=== PATIENT | male | born 1985 | race Two or more races ===

== ENCOUNTER 2024-11-06 14:58 | Emergency (ER) | payer SELFPAY ==
[2024-11-06 15:04] VITALS: BP 131/87; PULSE 140; RESP 18; TEMP 36.6; O2SAT 97
--- NOTE | 2024-11-06 15:07 | EDNOTE_ITS ---
ED Medical Clearance RME/HPI General Chief complaint: Medical Clearance Stated complaint: PENITENTIARY CHECK Time Seen by Provider: 11/06/24 15:04 Arrival date/time: 11/06/24 14:58 RME / HPI RME / HPI Narrative: 39-year-old male patient homeless, admits of using meth, uses today prior to being incarcerated, was brought in by law enforcement for tachycardia. Apparently [facility] and prior to booking was noted with heart rate above 140, patient was sent her for a heart rate above 140, the cutoff is only 130 and below. Currently patient is denying any chest pain denies any complaints no fever no vomiting no diarrhea Related Information Allergies Allergy/AdvReac Type Severity Reaction Status Date / Time No Known Allergies Allergy Verified 11/06/24 15:18 Review of Systems Review of Systems Narrative Review of Systems: Review of system reviewed and within normal limits except mentioned in HPI ED Exam Narrative Physical exam: VITAL SIGNS: Reviewed. GENERAL APPEARANCE: Alert and interactive, follows commands, no acute distress, unkept HEAD AND FACE: Non-traumatic. ENT: PERRL, pink conjunctivitis, eyelid no trauma, Mucous membrane moist. NECK: Supple, nontender, no nuchal rigidity. CHEST: No tenderness, no crepitus, no paradoxical movement, no retractions. LUNGS: Clear, well ventilated, symmetric, no rales, no wheezing, no ronchi, no stridor, good breath sounds bilaterally. HEART: Sinus tachycardia, no murmur, no gallops. ABDOMEN: Soft, positive bowel sounds, nondistended, no guarding, nontender, no rebound, no masses, RECTAL: Deferred. GENITAL: Deferred. NEUROLOGICAL: Gross motor function intact sensory function intact, Appropriate for age. MUSCULOSKELETAL: low back nontender, full range of motion. EXTREMITIES: Nontender, full range of motion. SKIN: Color pink, dry, no rash, no lacerations, no abrasions, no contusions. LYMPHATICS: Deferred. Course Quality Measures none Orders Category Date Time Status EKG (ED ONLY) *Do not use* NOW Care 11/06/24 16:18 Completed Insert IV NOW Care 11/06/24 15:07 Active EKG (ED Only) Stat Exams 11/06/24 16:18 Draft CBC [CBC] Stat Lab 11/06/24 15:25 Completed CMP [Comprehensive Metabolic Panel] Stat Lab 11/06/24 15:25 Completed Ringers Lactated 1000 ml [Lactated Ringers] 1,000 ml Med 11/06/24 15:06 Discontinued IV 999 mls/hr Sod Polystyrene Sulfon Susp [Kayexalate Susp] Med 11/06/24 16:17 Discontinued 30 gm PO X1 ONE Sodium Chloride 0.9% 1000 ml [Ns] 1,000 ml Med 11/06/24 15:33 Active IV 999 mls/hr Vital Signs Vital signs: Vital Signs Temperature 97.8 F 11/06/24 15:04 Pulse Rate 140 H 11/06/24 15:04 Respiratory Rate 18 11/06/24 15:04 Blood Pressure 131/87 H 11/06/24 15:04 Pulse Oximetry (%) 97 11/06/24 15:04 Oxygen Delivery Method Room Air 11/06/24 15:04 Medical Clearance MDM Narrative MDM Narrative:: 39-year-old male patient homeless, admits of using meth, uses today prior to being incarcerated, was brought in by law enforcement for tachycardia. Apparently [facility] and prior to booking was noted with heart rate above 140, patient was sent her for a heart rate above 140, the cutoff is only 130 and below. Currently patient is denying any chest pain denies any complaints no fever no vomiting no diarrhea Patient's heart rate was noted to be 101 prior to discharge. However patient had a leukocytosis of 16,000 which could be reactive in nature, potassium 5.7. Creatinine 1.4. Patient received Kayexalate in the emergency room. EKG showed sinus tachycardia, ventricular rate 110 bpm, no ST segment elevation depression noted. Patient is medically cleared for incarceration. Patient data External records reviewed:: None Clinical information provided by:: patient Social determinants that could affect healthcare access:: substance use Patient has the following chronic illnesses:: MetH abuse How is presenting disease/condition affected by chronic disease/condition?: exacerbated by Evaluation data The following diagnostics were reviewed and interpreted by me:: lab results and EKG tracing(s) Lab and/or radiology exams considered but not ordered:: None Interpretation Summary: EKG showed normal sinus rhythm, ventricular rate of no ST segment elevation depression noted. Medications / Prescriptions Medications or Prescriptions considered but not ordered:: None Medication administrations:: Medication Administration History Sodium Chloride (Ns) 1,000 mls @ 999 mls/hr IV .Q1H1M ONE Stop: 11/06/24 16:33 Last Infusion: 11/06/24 16:05 Dose: Infused Documented By: Admin: 11/06/24 15:34 Dose: 999 mls/hr Documented By: MARY Discontinued Medications Lactated Ringer's (Lactated Ringers) 1,000 mls @ 999 mls/hr IV .Q1H1M ONE Stop: 11/06/24 16:06 Last Admin: 11/06/24 15:34 Dose: Not Given Documented By: MARY Non-Admin Reason: Cancelled by Provider Sodium Polystyrene Sulfonate (Sod Polystyrene Sulfon Susp 15 Gm/60 Ml Btl) 30 gm PO X1 ONE Stop: 11/06/24 16:18 Last Admin: 11/06/24 16:24 Dose: 30 gm Documented By: MACKENZIE IV NS, and Kayexalate p.o. Consultations Consultation(s) initiated? (list below): No Diagnosis Medical Clearance Differential Diagnosis: other (Dehydration, methamphetamine abuse, hyperkalemia 5.7, medical clearance for incarceration) Most likely diagnosis given after review of the tests above:: Medical clearance for incarceration Admission Indicated Admission indicated?: not indicated Explain why admission is indicated or not indicated:: Stable patient is medically cleared for incarceration latest heart rate 101 prior to discharge. Admission Request Was there a request for admission?: No Disposition Plan Disposition Plan: Discharge Discharge Attestation Discharge Attestation: Patient condition: Stable Discharge Plan Plan Patient Disposition: Snf/Court/Law Discharge Disposition comment: Stable Prescriptions/Referrals Referrals: No Primary/Family,Physician [Primary Care Provider] - In 1 week Problem List Clinical Impression: Medical clearance for incarceration Patient/Caregiver Discharge Instructions Discharge Activity: activity as tolerated Education Materials: Reducing Your Health Risks ... Additional Instructions: Thank you for the opportunity for serving you today. You are stable for discharged . You are advised to: Follow-up with your PCP in 1 to 2 days once you get out of [facility] Return to ED for worsening of symptoms Increase oral fluids Print Language: Scottish EBONIE/MARYJANE Supervising Physician EBONIE/MARYJANE Supervising Physician: MD Star
[2024-11-06 15:15] VITALS: BMI 22.5
[2024-11-06] MEDS: SODIUM CHLORIDE 0.9% 1000 ML 1,000 ML 999 ML IV (15:34)
[2024-11-06 15:53] LABS: Basophils # (Auto) 0.1 Thou/mm3 (0.0-0.2); Basophils % (Auto) 1 % (0-2.5); Eosinophils # (Auto) 0.1 Thou/mm3 (0.0-0.5); Eosinophils % (Auto) 1 % (0-10); Hematocrit 42.7 % (41.0-53.0); Hemoglobin 14.0 g/dL (13.5-16.0); Immature Granulocytes Auto 0.07 Thou/mm3 (0.00-0.00); Lymphocytes # (Auto) 2.1 Thou/mm3 (1.0-4.8); Lymphocytes % (Auto) 13 % (10-50); Mean Corpuscular HGB Conc 32.8 g/dl (31.0-37.0); Mean Corpuscular Hemoglobin 29.0 pg (25.0-35.0); Mean Corpuscular Volume 88 fL (80-100); Monocytes # (Auto) 0.9 Thou/mm3 (0.0-0.8); Monocytes % (Auto) 6 % (0-12); Neutrophils # (Auto) 12.7 Thou/mm3 (1.8-7.7); Neutrophils % (Auto) 79 % (37-80); Nucleated Red Blood Cell # 0.00 Thou/mm3 (0.00-0.00); Nucleated Red Blood Cell % 0 /100 WBC (0); Platelet Count 311 Thou/mm3 (140-440); RDW Standard Deviation 43.6 fL (35.1-43.9); Red Blood Count 4.83 Miln/mm3 (4.50-5.90); White Blood Count 16.0 Thou/mm3 (3.8-10.6)
[2024-11-06 16:03] VITALS: PULSE 101; RESP 16; O2SAT 95
[2024-11-06 16:16] LABS: Alanine Aminotransferase 33 U/L (10-49); Albumin, Serum 5.0 gm/dL (3.5-5.0); Albumin/Globulin Ratio 1.8 (1.2-2.2); Alkaline Phosphatase 81 U/L (46-116); Anion Gap 15 (7-16); Aspartate Amino Transferase 67 U/L (0-34); BUN/Creatinine Ratio 11 Ratio (12-20); Bilirubin,Total 0.9 mg/dL (0.3-1.2); Blood Urea Nitrogen 15 mg/dL (9-23); Calcium 10.0 mg/dL (8.3-10.6); Calcium (Corrected) 10.0 mg/dL (8.5-10.1); Carbon Dioxide 18.9 mMol/L (20.0-31.0); Chloride 106 mMol/L (98-107); Creatinine (Component) 1.4 mg/dL (0.6-1.3); Estimated Creatinine Clearance 82.6 mL/min (>60); Globulin 2.8 gm/dL (2.3-3.5); Glucose 82 mg/dL (74-106); Osmolality,Calculated 279 (275-295); Potassium 5.7 mMol/L (3.4-5.1); Sodium 140 mMol/L (136-145); Total Protein 7.8 gm/dL (5.7-8.2); eGFR > 60 See Note
--- NOTE | 2024-11-06 16:18 | EKG_ITS ---
[facility] Test Date: 2024-11-06 Pat Name: ADEN MCDOWELL Department: Room: - Gender: Male [employer]: : 1985 Requested By: Kaitlyn Villalpando Order Number: [id number] Reading MD: Kaitlyn Villalpando Measurements Intervals [place] Rate: 110 P: 69 NC: 131 QRS: 43 QRSD: 100 T: 56 QT: 338 QTc: 459 Interpretive Statements SINUS TACHYCARDIA INCOMPLETE RIGHT BUNDLE BRANCH BLOCK [90+ ms QRS DURATION, TERMINAL R IN V1/V2, 40+ ms S IN I/aVL/V4/V5/V6] ABNORMAL RHYTHM ECG No previous ECG available for comparison /store/S0/[id number]
[2024-11-06] MEDS: SOD POLYSTYRENE SULFON SUSP 15 GM/60 ML BTL 30 GM PO (16:24)
== END 2024-11-06 16:47 ==
PROVIDERS: Nurse Practitioner Family; Emergency Provider Emergency Medicine
DX: Z02.89 Encounter for other administrative examinations (principal); R00.0 Tachycardia, unspecified; Z59.00 Homelessness unspecified; F15.10 Other stimulant abuse, uncomplicated
CPT/HCPCS: 36415; 80053; 85025; 93005; 96360; 99283; J7030; A9270